=== PATIENT | female | born 1965 | race Caucasian/White ===

== ENCOUNTER → 2020-05-07 | Outpatient (CLI) | payer MEDICARE, OTHER | LOC: KOH-I 09:42 | DX: M84.374A Stress fracture, right foot, initial encounter for fracture (principal); M79.89 Other specified soft tissue disorders; X58.XXXA Exposure to other specified factors, initial encounter | CPT/HCPCS: 73630 ==

== ENCOUNTER → 2020-05-24 | Outpatient (CLI) | payer OTHER, MEDICARE | LOC: KOH-I 09:15 | DX: S92.251D Displaced fracture of navicular [scaphoid] of right foot, subsequent encounter for fracture with routine healing (principal); R60.0 Localized edema; M76.821 Posterior tibial tendinitis, right leg; X58.XXXD Exposure to other specified factors, subsequent encounter | CPT/HCPCS: 73718 ==

== ENCOUNTER → 2021-09-05 | Outpatient (CLI) | payer MEDICAID ==
[~2021-09-05] VITALS: Ht 172.7 cm; Wt 99.8 kg
[~2021-09-05] MED LIST: ALCLOMETASONE TOP; CELEXA40 MG PO; CYMBALTA30 MG PO; DAILY VALUE1 EACH PO; DICLOFENAC GEL 1% TOP; HYDROCODONE-AC1 EACH PO; LISINOPRIL5 MG PO; VITAMIN B12 INJ; VITAMIN D3 PO; ZANAFLEX4 MG PO
[2021-09-05 12:41] LABS: HEMOGLOBIN 14.3 gm/dl (12.3-15.3); RED BLOOD COUNT 4.89 M/UL (4.00-5.10); WHITE BLOOD COUNT 5.3 K/UL (4.5-11.0)
[2021-09-05 13:01] LABS: BUN/CREATININE RATIO 24 (0-10)
== END ==
LOC: OPSV2 10:00 → EDSTATUS 10:00 → OPSV2 11:04
PROVIDERS: Anesthesiology
DX: Z01.818 Encounter for other preprocedural examination (principal)
CPT/HCPCS: 80048; 85025

== ENCOUNTER → 2021-09-18 | Outpatient (CLI) | payer MEDICARE ==
[~2021-09-18] MED LIST changes: +ASPIRIN EC81 MG PO
[2021-09-18 12:28] LABS: BUN/CREATININE RATIO 23 (0-10)
== END ==
LOC: LAB 11:02
PROVIDERS: Orthopaedic Surgery
DX: Z01.812 Encounter for preprocedural laboratory examination (principal)
CPT/HCPCS: 36415; 80048; 86850; 86900; 86901

== ENCOUNTER 2021-09-19 09:25 | Day surgery (SDC) | payer MEDICAID ==
[~2021-09-19] VITALS: Ht 160 cm; Wt 112.2 kg
[~2021-09-19 09:25] MED LIST changes: -ASPIRIN EC81 MG PO
[2021-09-20 06:36] LABS: HEMOGLOBIN 11.3 gm/dl (12.3-15.3); RED BLOOD COUNT 3.99 M/UL (4.00-5.10); WHITE BLOOD COUNT 9.4 K/UL (4.5-11.0)
[2021-09-20 06:57] LABS: BUN/CREATININE RATIO 25 (0-10)
[2021-09-20] MEDS ORDERED: ASPIRIN EC81 MG PO (07:56)
== END 2021-09-20 11:15 | disposition home or self-care (01) ==
LOC: OR 09:25 → EDSTATUS 11:45 → OR 11:45 → MED SURG 4 15:31 → OR 15:40
PROVIDERS: Internal Medicine
DX: M17.12 Unilateral primary osteoarthritis, left knee (principal); M79.4 Hypertrophy of (infrapatellar) fat pad; M25.762 Osteophyte, left knee; I10 Essential (primary) hypertension; R73.03 Prediabetes; M06.9 Rheumatoid arthritis, unspecified; E66.01 Morbid (severe) obesity due to excess calories; E78.5 Hyperlipidemia, unspecified; F41.9 Anxiety disorder, unspecified; H81.09 Meniere's disease, unspecified ear; Z98.84 Bariatric surgery status; Z90.49 Acquired absence of other specified parts of digestive tract; Z98.890 Other specified postprocedural states
CPT/HCPCS: 36415; 73560; 80053; 85025; 97116; 97116-GP-CQ; 97162; 97165; 97530-GP-CQ; 97535; C1713; C1776; J0690; J1100; J1885; J2250; J2270; J2274; J2370; J2704; J2795; J3010; J7120